=== PATIENT | female | born 1975 | race Caucasian/White ===

== ENCOUNTER → 2018-12-06 12:08 | Outpatient (CLI) | payer OTHER, SELFPAY ==
--- NOTE | 2018-12-06 | DI.RAD.S_ITS ---
PROCEDURE: XR KNEE LT 3V INDICATIONS: LEFT KNEE PAIN TECHNIQUE: 3 all views of the knee were acquired. COMPARISON: None. FINDINGS: Bones: No fractures or dislocations. No suspicious bony lesions. Minimal narrowing of the medial compartment joint interspace. Soft tissues: No joint effusion. There is an ovoid calcification in apposition to the posterior border of the lateral femoral condyle, potentially within the joint space. IMPRESSION: A mild degree of degenerative osteoarthritis appears present as indicated by mild narrowing of the medial compartment interspace. Additionally, there is an ovoid calcific radiodensity in apposition to the posterior border of the lateral femoral condyle, measuring up to approximately 1.7 cm craniocaudad and 8 mm in AP dimension potentially an intra-articular loose body. Depending on the clinical status followup by knee MRI may be warranted. Dictated by: Alonso Christianson M.D. on 12/06/2018 at 12:57 Approved by: Alonso Christianson M.D. on 12/06/2018 at 12:59
== END ==
PROVIDERS: Family Provider Family Medicine; PCP Family Medicine; Visit Provider Family Medicine
DX: M25.562 Pain in left knee (principal); M17.12 Unilateral primary osteoarthritis, left knee
CPT/HCPCS: 73562

== ENCOUNTER → 2024-06-27 16:42 | Outpatient (CLI) | payer OTHER, SELFPAY ==
--- NOTE | 2024-06-27 16:44 | DI.RAD.S_ITS ---
PROCEDURE: XR KNEE LT 3V INDICATIONS: PAIN IN LT KNEE TECHNIQUE: 3 views of the knee were acquired. COMPARISON: [facility], , XR KNEE LT 3V, 12/06/2018, 12:11. FINDINGS: Bones: No fractures or dislocations. No suspicious bony lesions. Tricompartmental joint space narrowing with associated osteophytosis. Soft tissues: Moderate joint effusion. No suspicious soft tissue calcifications. IMPRESSION: Moderate knee joint effusion. [id number] tricompartmental osteoarthritis. Kellgren-Andrez Grade 2. Slight interval progression from prior. Dictated by: Danny Reyes M.D. on 06/28/2024 at 9:02 Approved by: Danny Reyes M.D. on 06/28/2024 at 9:03
== END ==
PROVIDERS: Family Provider Family Medicine; PCP Family Medicine; Referring Provider Family Medicine; Visit Provider Family Medicine
DX: M17.12 Unilateral primary osteoarthritis, left knee (principal); M25.462 Effusion, left knee; M25.562 Pain in left knee; G89.29 Other chronic pain
CPT/HCPCS: 73562

== ENCOUNTER → 2024-07-04 19:45 | Outpatient (CLI) | payer OTHER, SELFPAY ==
--- NOTE | 2024-07-04 19:46 | DI.MRI.S_ITS ---
PROCEDURE: MR KNEE LT WO CON INDICATIONS: CHRONIC PAIN OF LEFT KNEE TECHNIQUE: Noncontrast sagittal PD fast spin echo and T2 fast spin echo with fat saturation, sagittal 3-D FLASH with fat saturation; coronal T1 spin echo and PD fast spin echo with fat saturation, and axial PD fast spin echo with fat saturation through the knee. COMPARISON: [facility], CR, XR KNEE LT 3V, 06/27/2024, 16:52. FINDINGS: Image quality: Excellent. Bones: Mild marrow edema is present at the posterior nonweightbearing medial femoral condyle (7/6) and weight-bearing medial tibial plateau (7/8). The bone marrow signal is otherwise normal. There is no acute fracture or dislocation. Joints: There is a moderate-large knee joint effusion with synovial proliferation. There is a chronic 1.9 cm calcified intra-articular body in the posterior joint capsule adjacent to the nonweightbearing femoral condyle (5/9; 7/21). There is moderate knee osteoarthritis, most conspicuous in the medial compartment. Gutiérrez's cyst: None. Menisci: Superimposed on meniscal maceration, there are multifocal small radial tears of the inner free edge of the medial meniscal body, along with a complex tear of the posterior horn-posterior root junction with extension to the posterior root attachment (/; 5/19). There is 6 mm of meniscal body extrusion into the medial gutter. The lateral meniscus and its posterior root attachment are normal. Cruciate ligaments: The anterior cruciate ligament is normal. The posterior cruciate ligament is normal. Collateral ligaments: The medial collateral ligament complex is normal. The lateral collateral ligament complex is normal. Popliteus Muscle/Tendon: The popliteus muscle and tendon are normal. There is a small amount of joint fluid that decompresses along the popliteal myotendinous junction. Extensor mechanism: The quadriceps tendon is normal. The patellar tendon is normal. The medial and lateral patellar retinacular attachments are normal. Articular cartilage: There is multifocal near full-thickness cartilage loss throughout the medial compartment (10/21). Mild surface fibrillation is present throughout the lateral compartment (/). Multifocal areas of deep partial thickness chondral loss and fissuring are present throughout the patellofemoral compartment (/-14). Other: Mild prepatellar and infrapatellar subcutaneous edema. IMPRESSION: 1. Complex medial meniscal tear with involvement of the posterior root attachment and 6 mm of meniscal body extrusion into the medial gutter. 2. Moderate knee osteoarthritis with a large joint effusion, synovitis, articular cartilage defects, and a 1.9 cm posterior joint capsule intra-articular body. Dictated by: Silverio Brewer M.D. on 07/05/2024 at 15:19 Approved by: Silverio Brewer M.D. on 07/05/2024 at 15:32
== END ==
LOC: MRI 19:46
PROVIDERS: Family Provider Family Medicine; PCP Family Medicine; Referring Provider Family Medicine; Visit Provider Family Medicine
DX: S83.232A Complex tear of medial meniscus, current injury, left knee, initial encounter (principal); M17.12 Unilateral primary osteoarthritis, left knee; M25.462 Effusion, left knee; M25.562 Pain in left knee; M23.92 Unspecified internal derangement of left knee; G89.29 Other chronic pain; M65.98 Unspecified synovitis and tenosynovitis, other site
CPT/HCPCS: 73721